=== PATIENT | female | born 1960 | race Caucasian/White ===

== ENCOUNTER 2016-08-25 19:52 | Outpatient (CLI) | payer BC | END 2016-08-25 19:53 | disposition home or self-care (01) | DX: N94.89 Other specified conditions associated with female genital organs and menstrual cycle (principal) ==

== ENCOUNTER 2016-10-15 09:11 | Day surgery (SDC) | payer BC ==
[2016-10-15] MEDS ORDERED: LACTATED RINGERS 1,000 ML IV ONE ×2 (09:19→10:40)
[2016-10-15] MEDS ORDERED: ROCURONIUM 50 MG/5 ML VIAL IVP ONE (10:00)
[2016-10-15] MEDS ORDERED: ePHEDrine 50 MG/ML AMP IVP ONE (10:00)
[2016-10-15] MEDS ORDERED: PROPOFOL 200 MG/20 ML VIAL IVP ONE (10:00)
[2016-10-15] MEDS ORDERED: DEXAMETHASONE 4 MG/ML VIAL IVP ONE (10:00)
[2016-10-15] MEDS ORDERED: GLYCOPYRROLATE 1 MG/5 ML VIAL IVP ONE (10:00)
[2016-10-15] MEDS ORDERED: NEOSTIGMINE 1 MG/1 ML 10 ML MDV IVP ONE (10:00)
[2016-10-15] MEDS ORDERED: ONDANSETRON 4 MG/2 ML VIAL IVP ONE (10:00)
[2016-10-15] MEDS ORDERED: fentaNYL 100 MCG/2 ML VIAL IVP ONE (10:00)
[2016-10-15] MEDS ORDERED: MIDAZOLAM 2 MG/2 ML VIAL IVP ONE (10:00)
[2016-10-15] MEDS ORDERED: NALOXONE 0.4 MG/ML VIAL IVP ONE (10:00)
[2016-10-15] MEDS ORDERED: ACETAMINOPHEN 1,000 MG/100 ML 100 ML IV ONE (11:47)
[2016-10-15] MEDS ORDERED: KETOROLAC 15 MG/ML VIAL ONE (12:21)
== END 2016-10-15 09:12 | disposition home or self-care (01) ==
PROC: 0UT64ZZ Resection of Left Fallopian Tube, Percutaneous Endoscopic Approach (ICD-10-PCS; 2016-10-15)
PROC: 0UT14ZZ Resection of Left Ovary, Percutaneous Endoscopic Approach (ICD-10-PCS; principal; 2016-10-15 11:00)
DX: N83.8 Other noninflammatory disorders of ovary, fallopian tube and broad ligament (principal); C57.02 Malignant neoplasm of left fallopian tube
CPT/HCPCS: 58661; J0131; J7120

== ENCOUNTER 2016-12-06 20:46 | Emergency (ER) | payer BC ==
--- NOTE | 2016-12-06 20:50 | ED Physician Documentation ---
PD HPI FEVER - Stated complaint Stated Complaint: FEVER POST SURGERY - History obtained from History obtained from: Patient - History of Present Illness Timing - onset: Today Timing details: Abrupt onset, Intermittant Pain level now: 5 Associated symptoms: Chills, Sweats, Abdominal pain. No: Ear pain, Nasal congestion, Sinus pain, Sore throat, Dry cough, Productive cough, Chest pain, Dyspnea, Urinary symptoms, Rash/skin lesion Similar symptoms before: Has not had sx before Recently seen: Surgery - Additional information Additional information: Patient had hysterectomy 12/03 at [facility] with right salpingo- oophorectomy (procedure was due to malignancy). She presents with fever since this afternoon. Review of Systems Constitutional: reports: Fever, Chills, Sweats Eyes: reports: Reviewed and negative Ears: reports: Reviewed and negative Nose: reports: Reviewed and negative Throat: reports: Reviewed and negative Cardiac: reports: Reviewed and negative Respiratory: reports: Reviewed and negative GI: reports: Abdominal Pain. denies: Nausea, Vomiting, Constipation, Diarrhea : denies: Dysuria, Frequency Skin: reports: Reviewed and negative Musculoskeletal: denies: Neck pain, Back pain Neurologic: denies: Generalized weakness, Focal weakness, Headache PD PAST MEDICAL HISTORY - Past Medical History Cardiovascular: None Respiratory: Asthma Endocrine/Autoimmune: None GI: Other : Incontinence HEENT: Other Psych: Other Musculoskeletal: None Derm: None - Past Surgical History Past Surgical History: Yes /[place]: Hysterectomy, Oophrectomy - Present Medications Home Medications: Ambulatory Orders Medication Instructions Recorded Confirmed Calcium Carbonate/Vitamin D3 600 mg PO OAW 03/10/13 12/06/16 [Calcium 600 + D3 Softgel] Iron,Carbonyl [Feosol] 45 mg PO OAW 03/10/13 12/06/16 Multivitamin [Multi-Vitamin Daily] 1 each PO OAW 03/10/13 12/06/16 Ibuprofen 600 mg ORAL Q6H PRN 12/06/16 12/06/16 - Allergies Allergies/Adverse Reactions: Allergies Allergy/AdvReac Type Severity Reaction Status Date / Time codeine Allergy Nausea Verified 12/06/16 20:57 Penicillins Allergy Hives Verified 10/13/16 12:03 latex AdvReac Rash Verified 10/15/16 11:59 - Living Situation Living Arrangement: reports: At home PD ED PE NORMAL - Vitals Vital signs reviewed: Yes - General General: Alert and oriented X 3, No acute distress, Well developed/nourished - HEENT HEENT: Moist mucous membranes - Neck Neck: Supple, no meningeal sign - Cardiac Cardiac: RRR, No murmur - Respiratory Respiratory: No respiratory distress, Clear bilaterally - Abdomen Abdomen: Soft, Other (diffuse tenderness, c/w recent surgery (also, she is not taking analgesics stronger than ibuprofen, as the opiate is too strong for her)) - Back Back: No CVA TTP - Derm Derm: Normal color, Warm and dry - Extremities Extremities: No edema Results - Vitals Vitals: Vital Signs - 24 hr 12/06/16 12/06/16 12/06/16 20:51 22:06 23:34 Temperature 39.2 C H 37.2 C 36.2 C L Heart Rate 124 H 105 H 84 Respiratory 20 16 15 Rate Blood Pressure 123/62 113/59 L 110/62 O2 Saturation 100 100 97 Oxygen O2 Source Room air - Labs Labs: Laboratory Tests 12/06/16 12/06/16 12/06/16 21:20 21:20 21:20 WBC 11.1 H RBC 4.64 Hgb 9.8 L Hct 31.5 L MCV 67.9 L MCH 21.1 L MCHC 31.0 L RDW 14.2 Plt Count 163 MPV 8.0 Neut # 9.9 H Lymph # 0.4 L [place] # 0.6 Eos # 0.2 Baso # 0.1 Absolute Nucleated RBC 0.00 Nucleated RBCs 0.0 Sodium 136 Potassium 4.1 Chloride 100 L Carbon Dioxide 28 Anion Gap 8.0 BUN 13 Creatinine 0.7 Estimated GFR (MDRD) 87 L Glucose 118 H Lactic Acid 0.9 Calcium 9.2 Total Bilirubin 0.9 AST 61 H ALT 71 H Alkaline Phosphatase 82 Total Protein 7.4 Albumin 3.5 Globulin 3.9 Albumin/Globulin Ratio 0.9 L Lipase 27 Urine Color Urine Clarity Urine pH Ur Specific [place] Urine Protein Urine Glucose (UA) Urine Ketones Urine Occult Blood Urine Nitrite Urine Bilirubin Urine Urobilinogen Ur Leukocyte Esterase Urine RBC Urine WBC Ur Squamous Epith Cells Urine Bacteria Ur Microscopic Review Urine Culture Comments 12/06/16 21:50 WBC RBC Hgb Hct MCV MCH MCHC RDW Plt Count MPV Neut # Lymph # [place] # Eos # Baso # Absolute Nucleated RBC Nucleated RBCs Sodium Potassium Chloride Carbon Dioxide Anion Gap BUN Creatinine Estimated GFR (MDRD) Glucose Lactic Acid Calcium Total Bilirubin AST ALT Alkaline Phosphatase Total Protein Albumin Globulin Albumin/Globulin Ratio Lipase Urine Color YELLOW Urine Clarity HAZY Urine pH 8.0 H Ur Specific [place] 1.025 Urine Protein 30 H Urine Glucose (UA) NEGATIVE Urine Ketones >=80 H Urine Occult Blood LARGE H Urine Nitrite NEGATIVE Urine Bilirubin NEGATIVE Urine Urobilinogen 4 H Ur Leukocyte Esterase NEGATIVE Urine RBC 11-25 H Urine WBC 0-3 Ur Squamous Epith Cells FEW Squamous Urine Bacteria Rare Ur Microscopic Review INDICATED Urine Culture Comments NOT INDICATED PD MEDICAL DECISION MAKING - ED course Complexity details: reviewed results, re-evaluated patient, considered differential, d/w patient ED course: Unfortunately, CT is broken and not expected to be working for another few days. This is a post-op patient with a significant fever and no obvious source on w/u thus far. I d/w Dr. Gracia (beveling machine operator at [facility], covering for Dr. Purvis); he recommends transfer patient to [facility] so that CT can be performed and further testing, treatment, and observation as determined after their evaluation. Departure - Departure Disposition: 02 Transfer Acute Care Hosp Clinical Impression: Post-operative infection Condition: Good Discharge Date/Time: 12/06/16 23:33
[2016-12-06] MEDS ORDERED: SODIUM CHLORIDE 0.9% 1,000 ML IV STA ×2 (21:11→22:32)
[2016-12-06 21:33] LABS: BASOPHILS # (AUTO) 0.1 10^3/uL (0.0-0.1); BASOPHILS % (AUTO) 0.5 %; EOSINOPHILS # (AUTO) 0.2 10^3/uL (0.0-0.7); EOSINOPHILS % (AUTO) 1.8 %; HCT - HEMATOCRIT 31.5 % (37.0-47.0); HGB - HEMOGLOBIN 9.8 g/dL (12.0-16.0); LYMPHOCYTES # (AUTO) 0.4 10^3/uL (1.5-3.5); LYMPHOCYTES % (AUTO) 3.5 %; MEAN CORPUSCULAR HEMOGLOBIN 21.1 pg (27.0-31.0); MEAN CORPUSCULAR VOLUME 67.9 fL (81.0-99.0); MONOCYTES # (AUTO) 0.6 10^3/uL (0.0-1.0); MONOCYTES % (AUTO) 5.2 %; NEUTROPHILS # (AUTO) 9.9 10^3/uL (1.5-6.6); RED BLOOD COUNT 4.64 10^6/uL (4.20-5.40); RED CELL DISTRIBUTION WIDTH 14.2 % (12.0-15.0); UNCORRECTED WHITE BLOOD COUNT 11.1 x10^3/uL; WHITE BLOOD COUNT 11.1 x10^3/uL (4.8-10.8)
[2016-12-06 21:41] LABS: ALBUMIN/GLOBULIN RATIO 0.9 (1.0-2.2); BILIRUBIN,TOTAL 0.9 mg/dL (0.2-1.0); CALCIUM 9.2 mg/dL (8.5-10.3); CREATININE 0.7 mg/dL (0.4-1.0); POTASSIUM 4.1 mmol/L (3.5-5.0); TOTAL PROTEIN 7.4 g/dL (6.7-8.2)
[2016-12-06 22:36] LABS: BILIRUBIN,URINE NEGATIVE (NEGATIVE); UA w/ MICROSCOPIC CHARGE YES
[2016-12-06 22:40] LABS: UR CULTURE IF IND NOT INDICATED; WBC,URINE 0-3 /HPF (0-5)
[2016-12-06] MEDS ORDERED: ACETAMINOPHEN 325 MG TABLET PO STA (22:43)
[2016-12-06] MEDS ORDERED: ACETAMINOPHEN 325 MG TABLET PO ONE (22:44)
[2016-12-06 23:35] VITALS: BP 110/62
== END 2016-12-06 23:33 | disposition short-term general hospital (02) ==
LOC: ED 20:46
DX: T81.4XXA Infection following a procedure, initial encounter (principal); C80.1 Malignant (primary) neoplasm, unspecified; Z90.710 Acquired absence of both cervix and uterus
CPT/HCPCS: 36415; 80053; 81001; 83605; 83690; 85025; 87040; 99284; A9270; 81003; 87086

== ENCOUNTER 2016-12-06 23:36 | Outpatient (CLI) | payer BC | END 2016-12-06 23:37 | disposition short-term general hospital (02) | LOC: EMS 23:36 | PROVIDERS: ATTEND Surgery | DX: R50.9 Fever, unspecified (principal) | CPT/HCPCS: A0170; A0425; A0426 ==

== ENCOUNTER 2016-12-26 07:18 | Day surgery (SDC) | payer BC ==
[~2016-12-26 07:18] MED LIST: ceFAZolin 2 GM/50 ML 50 ML IV ONE
[2016-12-26] MEDS ORDERED: LACTATED RINGERS 1,000 ML IV ONE ×2 (07:55→10:15)
[2016-12-26 08:04] LABS: CALCIUM 9.5 mg/dL (8.5-10.3); CREATININE 0.6 mg/dL (0.4-1.0); POTASSIUM 4.3 mmol/L (3.5-5.0)
[2016-12-26] MEDS ORDERED: SCOPOLAMINE PATCH TOP ONE (09:12)
[2016-12-26] MEDS ORDERED: fentaNYL 100 MCG/2 ML VIAL IVP ONE (09:30)
[2016-12-26] MEDS ORDERED: MIDAZOLAM 2 MG/2 ML VIAL IVP ONE (09:30)
[2016-12-26] MEDS ORDERED: ONDANSETRON 4 MG/2 ML VIAL IVP ONE (09:30)
[2016-12-26] MEDS ORDERED: DEXAMETHASONE 4 MG/ML VIAL IVP ONE (09:30)
[2016-12-26] MEDS ORDERED: PHENYLEPHRINE 50 MG/5 ML VIAL IV ONE (09:30)
[2016-12-26] MEDS ORDERED: LIDOCAINE-MPF 2% 5 ML VIAL IM ONE (09:30)
[2016-12-26] MEDS ORDERED: PROPOFOL 200 MG/20 ML VIAL IVP ONE (09:30)
[2016-12-26] MEDS ORDERED: BUPIVACAINE 0.5% PF 30 ML VIAL SUBQ ONE ×2 (09:42)
--- NOTE | 2016-12-26 10:09 | OPERATIVE REPORT ---
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 This is my read. - Other Other Information/Narrative: OPERATIVE DESCRIPTION/REPORT: After verbal and written informed consent was obtained detailing the risks of infection, bleeding requiring transfusion with its risks, nerve injury, and , and after I met with the patient confirming the surgery and the site of the surgery and after initialing the site of the surgery with a surgical marker , the patient was brought to the operative suite and placed supine on the operating table. Great care was taken to avoid pressure points to prevent pressure necrosis or nerve injury. Monitoring devices were applied along with TEDs and pneumatic compressive stockings (to prevent DVT). The patient received preoperative antibiotics for surgical prophylaxis. Mk Rosado sedated and anethetized the patient for the entire procedure. The patient was prepped and draped in the usual sterile manner. With the patient draped my initials were clearly visible. A "time in" then confirmed that the paitient was identified with 3 identifiers (name, birthdate and medical record number), the history and physical was in the chart, the signed consent confirming the procedure was in the chart, the patient was in the correct position, the aforementioned prophylactic measures were in place or given, we had the correct personel and equipment to complete the procedure and that anesthesia, surgery and nursing were given an opportunuty to express any concerns. With the agreement of everyone in the room, we proceeded with the operation. After the subclavian region was anesthetized using % marcaine and the patient placed in Trendelenberg position, a Vortex port kit (see implantation record for identifying numbers) was opened. The finder needle was inserted into the subclavian vein taking great care to place it just under the clavicle in order to minimize the risk of pneumothorax. When good venous blood return was obtained, the wire was placed through the needle and into the vein without difficulty. Cardiac irritability confirmed that the catheter was correctly going down towards the heart. Below and lateral to the needle insertion site, the area was anesthetized again using % marcaine and a transverse incision was made just large enough to accommodate the port. This incision was taken down to the fascia using sharp dissection and the area for the port was created using blunt downward dissection. Meticulous hemostasis was obtained using Bovie electrocautery. A knife was inserted along the wire to widen the insertion site and this was further dilated using a Radha. The port was flushed with heparinized saline and placed in the pouch and the catheter was then passed to the needle opening using the passer. The catheter was then measured against the patients anterior chest and cut so that the tip would lie 2 cm below the manubrial-sternal junction. The port was secured to the fascia using a 3-0 Prolene on the side of the opening of the port. The catheter was then wiped and wrapped with a heparinized soaked 4x4. The dilator and sheath were then carefully inserted over the wire and the dilator and wire withdrawn. The catheter was then inserted into the sheath and the sheath was broken away from the catheter leaving the catheter in place in the vein. An X-ray confirmed placement of the catheter tip in the right atrium/supracardiac vena cava without pneumothorax. Using a Hueber needle the port was accessed and good blood return as well as easy flush was noted. The subcutaneous tissue was approximated using 3-0 Vicryl and the skin incisions were approximated with 4-0 Monocryl in a subcuticular fashion. The skin prep was washed off and prepped with benzoin. Steristrips were applied. At this point a time out was performed that confirmed that all the counts were correct, the procedure that was performed, the blood loss, the IV fluids administered, and the patients condition. A dressing was placed on the wound. Having tolerated the procedure well, the patient was taken to short stay in good and stable condition. The patient was instructed that the Portacath could be used immediately.
--- NOTE | 2016-12-26 11:22 | XRAY Report ---
FRONTAL CHEST: 12/26/2016 CLINICAL INDICATION: Port placement. FINDINGS: Supine view of the chest demonstrates a left subclavian port terminating in the superior v dhruv cava. The cardiac silhouette is not enlarged. No focal infiltrate or gross pneumothorax is apprec iated. IMPRESSION: LEFT SUBCLAVIAN PORT TERMINATING IN THE SUPERIOR VENA CAVA. JOB #: [id number] EXT JOB #:[id number]
[2016-12-26] MEDS ORDERED: HYDROcod/ACETAM 10 MG/325 MG TABLET ONE (11:49)
[2016-12-26 12:07] VITALS: BP 108/62
== END 2016-12-26 07:19 | disposition home or self-care (01) ==
LOC: SDS 07:18
PROVIDERS: ATTEND Surgery
PROC: 02H633Z Insertion of Infusion Device into Right Atrium, Percutaneous Approach (ICD-10-PCS; 2016-12-26)
PROC: 0JH63XZ Insertion of Tunneled Vascular Access Device into Chest Subcutaneous Tissue and Fascia, Percutaneous Approach (ICD-10-PCS; principal; 2016-12-26 08:15)
DX: C57.02 Malignant neoplasm of left fallopian tube (principal); D64.9 Anemia, unspecified; D56.9 Thalassemia, unspecified; Z88.5 Allergy status to narcotic agent; Z90.710 Acquired absence of both cervix and uterus; Z88.0 Allergy status to penicillin; Z90.79 Acquired absence of other genital organ(s)
CPT/HCPCS: 36561; 71010; 80048; A9270; C1788; J0690; J3490; J7120

== ENCOUNTER 2017-07-21 07:09 | Outpatient (CLI) | payer BC ==
--- NOTE | 2017-07-22 13:44 | Mammography Report ---
DIGITAL SCREENING MAMMOGRAM: 07/21/2017 CLINICAL INDICATION: A 56-year-old, for screening. COMPARISON: 05/2016, 04/2015, 03/2014, 02/2013, 01/2012, 01/2011, 01/2010. TECHNIQUE: Routine CC and MLO projections were obtained of the breasts. Bilateral laterally exaggerated craniocaudal views. FINDINGS: Parenchymal tissue within both breasts is heterogeneously dense, which may lower the sensitivity of mammography; however, there are no dominant masses, suspicious microcalcifications, or secondary signs of malignancy. In comparison to the previous studies, there are no significant changes. ASSESSMENT: NO MAMMOGRAPHIC EVIDENCE OF MALIGNANCY. NO SIGNIFICANT INTERVAL CHANGES. RECOMMENDATION: Screening mammography is recommended annually. BIRADS category 1 - negative. STANDARD QUALIFYING STATEMENTS: 1. This examination was reviewed with the aid of Computed-Aided Detection (CAD). 2. A negative or benign imaging report should not delay biopsy if clinically suspicious findings are present. Consider surgical consultation if warranted. More than 5% of cancers are not identified by imaging. 3. Dense breasts may obscure an underlying neoplasm. TD: 07/22/2017 13:43
== END 2017-07-21 07:10 | disposition home or self-care (01) ==
LOC: DI 07:09
PROVIDERS: ATTEND Family Medicine
DX: Z12.31 Encounter for screening mammogram for malignant neoplasm of breast (principal)
CPT/HCPCS: 77067

== ENCOUNTER 2017-12-01 07:58 | Outpatient (CLI) | payer BC, OTHER | END 2017-12-01 07:59 | disposition home or self-care (01) | LOC: LAB.N 07:58 | PROVIDERS: ATTEND Physician Assistant Medical | DX: C57.00 Malignant neoplasm of unspecified fallopian tube (principal) | CPT/HCPCS: 36415; 86304 ==

== ENCOUNTER 2018-03-22 08:00 | Outpatient (CLI) | payer OTHER | END 2018-03-22 08:01 | disposition home or self-care (01) | LOC: LAB.N 08:00 | PROVIDERS: ATTEND Physician Assistant Medical | DX: C57.00 Malignant neoplasm of unspecified fallopian tube (principal) | CPT/HCPCS: 36415; 86304 ==

== ENCOUNTER → 2018-04-19 | Outpatient (CLI) | payer OTHER ==
[2018-04-19 13:15] LABS: BASOPHILS # (AUTO) 0.1 10^3/uL (0.0-0.1); BASOPHILS % (AUTO) 1.4 %; EOSINOPHILS # (AUTO) 0.6 10^3/uL (0.0-0.7); EOSINOPHILS % (AUTO) 13.8 %; LYMPHOCYTES % (AUTO) 21.8 %; MEAN CORPUSCULAR HEMOGLOBIN 22.2 pg (27.0-31.0); MEAN CORPUSCULAR HGB CONC 31.2 g/dL (32.0-36.0); MEAN CORPUSCULAR VOLUME 71.3 fL (81.0-99.0); MEAN PLATELET VOLUME 7.4 fL (7.9-10.8); MONOCYTES # (AUTO) 0.4 10^3/uL (0.0-1.0); MONOCYTES % (AUTO) 8.3 %; NEUTROPHILS # (AUTO) 2.5 10^3/uL (1.5-6.6); NEUTROPHILS % (AUTO) 54.7 %; PLT - PLATELET COUNT 167 10^3/uL (130-450); RED BLOOD COUNT 4.94 10^6/uL (4.20-5.40); RED CELL DISTRIBUTION WIDTH 15.1 % (12.0-15.0); WHITE BLOOD COUNT 4.6 x10^3/uL (4.8-10.8)
[2018-04-19 13:28] LABS: ALBUMIN 4.1 g/dL (3.2-5.5); ALBUMIN/GLOBULIN RATIO 1.4 (1.0-2.2); ALKALINE PHOSPHATASE 65 IU/L (42-121); ALT ALANINE AMINOTRANSFERASE 28 IU/L (10-60); AST ASPARTATE AMINOTRANSFERASE 29 IU/L (10-42); BILIRUBIN,TOTAL 0.8 mg/dL (0.2-1.0); BUN - BLOOD UREA NITROGEN 13 mg/dL (6-20); CALCIUM 9.4 mg/dL (8.5-10.3); CARBON DIOXIDE - CO2 31 mmol/L (21-32); CHLORIDE 104 mmol/L (101-111); CHOL/HDL RATIO 2.3 (<4.4); CHOLESTEROL 186 mg/dL; CREATININE 0.8 mg/dL (0.4-1.0); GFR - MDRD 74 (>89); GLUCOSE 96 mg/dL (70-100); HDL CHOLESTEROL 80 mg/dL; LDL CHOLESTEROL,CALCULATED 95 mg/dL; LDL/HDL RATIO 1.2 (<4.4); SODIUM 139 mmol/L (135-145); VLDL CHOLESTEROL 11 mg/dL
== END ==
LOC: LAB.WCP 08:00
PROVIDERS: ATTEND Family Medicine
DX: Z00.00 Encounter for general adult medical examination without abnormal findings (principal); D56.8 Other thalassemias
CPT/HCPCS: 36415; 80053; 80061; 83721; 84443; 85025

== ENCOUNTER 2018-06-28 08:00 | Outpatient (CLI) | payer BC, OTHER | END 2018-06-28 23:59 | disposition home or self-care (01) | LOC: LAB.N 08:00 | PROVIDERS: ATTEND Physician Assistant Medical | DX: C57.00 Malignant neoplasm of unspecified fallopian tube (principal) | CPT/HCPCS: 36415; 86304 ==

== ENCOUNTER 2018-10-01 08:00 | Outpatient (CLI) | payer BC | END 2018-10-01 23:59 | disposition home or self-care (01) | LOC: LAB.N 08:00 | PROVIDERS: ATTEND Physician Assistant Medical | DX: C57.00 Malignant neoplasm of unspecified fallopian tube (principal) | CPT/HCPCS: 36415; 86304 ==

== ENCOUNTER 2019-01-10 | Outpatient (CLI) | payer OTHER | END 2019-01-10 23:59 | disposition home or self-care (01) | DX: C57.00 Malignant neoplasm of unspecified fallopian tube (principal) ==

== ENCOUNTER 2019-04-08 07:33 | Outpatient (CLI) | payer OTHER | END 2019-04-08 07:34 | disposition home or self-care (01) | LOC: LAB.N 07:33 | PROVIDERS: ATTEND Physician Assistant Medical | DX: C57.00 Malignant neoplasm of unspecified fallopian tube (principal) | CPT/HCPCS: 36415; 86304 ==

== ENCOUNTER 2019-10-11 08:17 | Outpatient (CLI) | payer OTHER | END 2019-10-11 08:18 | disposition home or self-care (01) | LOC: LAB 08:17 | PROVIDERS: ATTEND Obstetrics & Gynecology | DX: C57.00 Malignant neoplasm of unspecified fallopian tube (principal) | CPT/HCPCS: 36415; 86304 ==

== ENCOUNTER 2020-04-06 13:43 | Outpatient (CLI) | payer OTHER | END 2020-04-06 13:44 | disposition home or self-care (01) | LOC: LAB 13:43 | PROVIDERS: ATTEND Obstetrics & Gynecology | DX: C57.00 Malignant neoplasm of unspecified fallopian tube (principal) | CPT/HCPCS: 36415; 86304 ==

== ENCOUNTER 2020-10-19 08:54 | Outpatient (CLI) | payer OTHER | END 2020-10-19 08:55 | disposition home or self-care (01) | LOC: LAB 08:54 | PROVIDERS: ATTEND Registered Nurse Obstetric, High-Risk | DX: Z08 Encounter for follow-up examination after completed treatment for malignant neoplasm (principal); Z85.43 Personal history of malignant neoplasm of ovary | CPT/HCPCS: 36415; 86304 ==

== ENCOUNTER 2020-12-15 17:04 | Outpatient (CLI) | payer OTHER | END 2020-12-15 17:05 | disposition EMS.NT | LOC: EMS 17:04 | DX: R07.89 Other chest pain (principal) ==

== ENCOUNTER 2020-12-15 17:55 | Emergency (ER) | payer OTHER ==
--- NOTE | 2020-12-15 18:40 | ED Physician Documentation ---
PD HPI CHEST PAIN - Stated complaint Stated Complaint: CHEST PX - Chief complaint Chief Complaint: Cardiac - History obtained from History obtained from: Patient - Additional information Additional information: 60-year-old woman with history of remote ovarian cancer in remission and no heart disease presents after 2 episodes of brief right-sided "twinging" chest pain while watching TV with her cats. Each 1 lasted 20 to 30 seconds at a time. Not associate with shortness of breath, sweats, dizziness, nausea, fatigue, leg pain, edema. 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, Oophrectomy - Present Medications Home Medications: Ambulatory Orders Medication Instructions Recorded Confirmed Multivitamin [Multi-Vitamin Daily] 1 each PO OAW 03/10/13 05/25/17 Acetaminophen [Tylenol Extra 500 mg PO ONCE PRN 12/15/16 05/25/17 Strength] LORazepam [Ativan] 0.5 mg PO Q6H PRN 02/10/17 05/25/17 Lidocaine/Prilocain 2.5% Cream 1 cm TOP PRN PRN 02/10/17 05/25/17 [Emla 2.5% Cream] Prochlorperazine Maleate 10 mg PO Q6H PRN 02/10/17 05/25/17 [Compazine] ondansetron HCL [Zofran] 8 mg PO Q8H PRN 02/10/17 05/25/17 - Allergies Allergies/Adverse Reactions: Allergies Allergy/AdvReac Type Severity Reaction Status Date / Time codeine Allergy Nausea Verified 12/15/20 18:15 Penicillins Allergy Hives Verified 12/15/20 18:15 latex AdvReac Rash Verified 12/15/20 18:15 - Social History Does the pt smoke?: No Smoking Status: Never smoker Does the pt drink ETOH?: No Does the pt have substance abuse?: No - Immunizations Immunizations are current?: Yes PD ED PE NORMAL - Vitals Vital signs reviewed: Yes - General General: Alert and oriented X 3, No acute distress - Neck Neck: Supple, no meningeal sign, No bony TTP - Cardiac Cardiac: RRR, No murmur - Respiratory Respiratory: No respiratory distress, Clear bilaterally - Abdomen Abdomen: Non tender - Derm Derm: Normal color, Warm and dry - Extremities Extremities: No edema, No calf tenderness / cord - Neuro Neuro: Alert and oriented X 3, Normal speech Results - Vitals Vitals: Vital Signs - 24 hr 12/15/20 18:11 Temperature 36.4 C L Heart Rate 76 Respiratory 16 Rate Blood Pressure 123/79 O2 Saturation 98 Oxygen O2 Source Room air - EKG (time done) 1817 Rate: Rate (enter#) (67) Rhythm: NSR [place]: Normal Intervals: Normal [place] Ischemia: Non specific changes. No: ST elevation c/w ischemia, ST depression Compare to prior EKG: Old EKG unavailable - Labs Labs: Laboratory Tests 12/15/20 12/15/20 12/15/20 18:40 18:40 18:40 WBC 4.7 L RBC 5.11 Hgb 10.9 L Hct 36.3 L MCV 71.0 L MCH 21.3 L MCHC 30.0 L RDW 15.3 H Plt Count 185 MPV 10.1 Neut # (Auto) 2.7 Lymph # (Auto) 0.9 L [place] # (Auto) 0.3 Eos # (Auto) 0.6 Baso # (Auto) 0.1 Absolute Nucleated RBC 0.00 Nucleated RBC % 0.0 Sodium 139 Potassium 3.7 Chloride 100 L Carbon Dioxide 30 Anion Gap 9.0 BUN 13 Creatinine 0.8 Estimated GFR (MDRD) 74 L Glucose 113 H Calcium 9.2 Total Bilirubin 0.7 AST 22 ALT 20 Alkaline Phosphatase 66 Troponin I High Sens 2.6 Total Protein 7.0 Albumin 4.1 Globulin 2.9 Albumin/Globulin Ratio 1.4 Lipase 52 H Departure - Departure Disposition: 01 Home, Self Care Clinical Impression: Atypical chest pain Condition: Good Record reviewed to determine appropriate education?: Yes Instructions: ED Chest Pain NonCardiac Comments: Call your doctor to arrange a follow-up appointment, make the next available appointment. In the interim, return anytime if worse or if new symptoms develop.
[2020-12-15 18:46] LABS: BASOPHILS # (AUTO) 0.1 10^3/uL (0.0-0.1); BASOPHILS % (AUTO) 1.5 %; EOSINOPHILS # (AUTO) 0.6 10^3/uL (0.0-0.7); EOSINOPHILS % (AUTO) 13.3 %; HCT - HEMATOCRIT 36.3 % (37.0-47.0); HGB - HEMOGLOBIN 10.9 g/dL (12.0-16.0); LYMPHOCYTES # (AUTO) 0.9 10^3/uL (1.5-3.5); LYMPHOCYTES % (AUTO) 20.2 %; MEAN CORPUSCULAR HEMOGLOBIN 21.3 pg (27.0-31.0); MEAN PLATELET VOLUME 10.1 fL (7.9-10.8); MONOCYTES # (AUTO) 0.3 10^3/uL (0.0-1.0); MONOCYTES % (AUTO) 6.2 %; NEUTROPHILS # (AUTO) 2.7 10^3/uL (1.5-6.6); NEUTROPHILS % (AUTO) 58.6 %; PLT - PLATELET COUNT 185 10^3/uL (130-450); RED BLOOD COUNT 5.11 10^6/uL (4.20-5.40); RED CELL DISTRIBUTION WIDTH 15.3 % (12.0-15.0); WHITE BLOOD COUNT 4.7 x10^3/uL (4.8-10.8)
[2020-12-15 19:08] LABS: ALBUMIN 4.1 g/dL (3.2-5.5); ALBUMIN/GLOBULIN RATIO 1.4 (1.0-2.2); BILIRUBIN,TOTAL 0.7 mg/dL (0.2-1.0); CALCIUM 9.2 mg/dL (8.5-10.3); CREATININE 0.8 mg/dL (0.4-1.0); POTASSIUM 3.7 mmol/L (3.5-5.0)
--- NOTE | 2020-12-15 19:32 | XRAY Report ---
PROCEDURE: Chest 1 View X-Ray INDICATIONS: Chest Pain TECHNIQUE: One view of the chest was acquired. COMPARISON: None FINDINGS: Surgical changes and devices: None. Lungs and pleura: No pleural effusions or pneumothorax. Lungs are clear. Mediastinum: Mediastinal contours appear normal. Heart size is normal. Bones and chest wall: No suspicious bony lesions. Overlying soft tissues appear unremarkable. IMPRESSION: No acute process. Reviewed by: Gil Castaneda MD on 12/15/2020 7:31 PM PDT Approved by: Gil Castaneda MD on 12/15/2020 7:31 PM PDT Station ID: [id number]
[2020-12-15 20:05] VITALS: BP 114/57
== END 2020-12-15 20:11 | disposition home or self-care (01) ==
LOC: ED 17:55
DX: R07.89 Other chest pain (principal)
CPT/HCPCS: 36415; 80053; 83690; 84484; 85025; 93005; 99284

== ENCOUNTER 2021-04-10 18:21 | Outpatient (CLI) | payer OTHER | END 2021-04-10 18:22 | disposition home or self-care (01) | LOC: LAB 18:21 | PROVIDERS: ATTEND Registered Nurse Obstetric, High-Risk | DX: Z08 Encounter for follow-up examination after completed treatment for malignant neoplasm (principal); Z85.43 Personal history of malignant neoplasm of ovary | CPT/HCPCS: 36415; 86304 ==

== ENCOUNTER 2021-05-15 13:29 | Outpatient (CLI) | payer OTHER ==
--- NOTE | 2021-05-16 11:58 | Mammography Report ---
BILATERAL DIGITAL SCREENING MAMMOGRAM 3D/2D: 05/15/2021 CLINICAL: Routine screening. Comparison is made to exams dated: 07/21/2017 mammogram, 05/12/2016 mammogram, 05/23/2015 mammogram, 1 mammogram, 02/11/2013 mammogram, and 01/29/2012 mammogram - [facility]. The re are scattered fibroglandular elements in both breasts. No significant masses, calcifications, or other findings are seen in either breast. There has been no significant interval change. IMPRESSION: NEGATIVE There is no mammographic evidence of malignancy. A 1 year screening mammogram is recommended. This exam was interpreted at Station ID: [id number]. NOTE: For mammograms, a report in lay terms will be sent to the patient. Approximately 15% of breast malignancies will not be visualized mammographically. In the management of a palpable breast mass, a negative mammogram must not discourage biopsy of a clinically suspicious lesion. Electronically Signed By: Jose Manuel Wood M.D., jr/peggy:05/15/2021 15:33:33 ACR BI-RADS Category 1: Negative 3341F PARENCHYMAL PATTERN: (A) - The breast(s) demonstrate(s) scattered fibroglandular densities. BI-RADS CATEGORY: (1) - 1 RECOMMENDATION: (ANNUAL) - Recommend routine annual screening mammography. 20220516 1 year screening LATERALITY: (B)
== END 2021-05-15 13:30 | disposition home or self-care (01) ==
LOC: DI 13:29
DX: Z12.31 Encounter for screening mammogram for malignant neoplasm of breast (principal)

== ENCOUNTER 2021-10-18 18:09 | Outpatient (CLI) | payer OTHER | END 2021-10-18 18:10 | disposition home or self-care (01) | LOC: LAB 18:09 | PROVIDERS: ATTEND Registered Nurse Obstetric, High-Risk | DX: Z08 Encounter for follow-up examination after completed treatment for malignant neoplasm (principal); C57.02 Malignant neoplasm of left fallopian tube; Z85.43 Personal history of malignant neoplasm of ovary | CPT/HCPCS: 36415; 86304 ==

== ENCOUNTER 2022-04-09 18:04 | Outpatient (CLI) | payer OTHER | END 2022-04-09 18:05 | disposition home or self-care (01) | LOC: LAB 18:04 | PROVIDERS: ATTEND Registered Nurse Obstetric, High-Risk | DX: Z08 Encounter for follow-up examination after completed treatment for malignant neoplasm (principal); C57.02 Malignant neoplasm of left fallopian tube; Z85.43 Personal history of malignant neoplasm of ovary | CPT/HCPCS: 36415; 86304 ==

== ENCOUNTER 2022-10-06 11:12 | Outpatient (CLI) | payer OTHER ==
--- NOTE | 2022-10-07 10:23 | Mammography Report ---
BILATERAL DIGITAL SCREENING MAMMOGRAM 3D/2D WITH EXAGGERATED CC: 10/06/2022 CLINICAL: Routine screening. Comparison is made to exams dated: 05/15/2021 mammogram, 07/21/2017 mammogram, 05/12/2016 mammogram, an d 05/23/2015 mammogram - [facility]. Both breasts are extremely dense, which lowers the sensitivity of mammography (category d />75% gland ular tissue). No significant masses, calcifications, or other findings are seen in either breast. There has been no significant interval change. IMPRESSION: NEGATIVE There is no mammographic evidence of malignancy. A 1 year screening mammogram is recommended. Based on the Tyrer Cuzick model (a risk assessment model) the patients lifetime risk is 13.7% and he r 10 year risk is 5.6%. According to the ACR, ACS, and NCCN guidelines, an annual breast MRI exam julio ng with mammogram is recommended if the patients lifetime risk is 20% or greater. This exam was interpreted at Station ID: [id number]. NOTE: For mammograms, a report in lay terms will be sent to the patient. Approximately 15% of breast malignancies will not be visualized mammographically. In the management of a palpable breast mass, a negative mammogram must not discourage biopsy of a clinically suspicious lesion. Electronically Signed By: Doni alfaro/peggy:10/06/2022 14:28:35 letter sent: No_Letter ACR BI-RADS Category 1: Negative 3341F PARENCHYMAL PATTERN: (VD) - The breast(s) demonstrate(s) extremely dense parenchyma, limiting the sen sitivity of mammography. BI-RADS CATEGORY: (1) - 1 Mammogram [id number] 1 year screening LATERALITY: (B)
== END 2022-10-06 11:13 | disposition home or self-care (01) ==
LOC: DI 11:12
DX: Z12.31 Encounter for screening mammogram for malignant neoplasm of breast (principal)

== ENCOUNTER 2023-04-13 18:28 | Outpatient (CLI) | payer OTHER | END 2023-04-13 18:29 | disposition home or self-care (01) | LOC: LAB 18:28 | PROVIDERS: ATTEND Registered Nurse Obstetric, High-Risk | DX: C57.02 Malignant neoplasm of left fallopian tube (principal); Z85.43 Personal history of malignant neoplasm of ovary | CPT/HCPCS: 36415; 86304 ==